=== PATIENT | male | born 1985 | race African-American/Black ===

== ENCOUNTER 2017-03-02 05:23 | Emergency (ER) | payer OTHER ==
[2017-03-02 05:33] VITALS: BP 139/86; BMI 24.3
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
[2017-03-02 07:02] LABS: BILIRUBIN,URINE NEGATIVE (NEGATIVE); BLOOD/HEMOGLOBIN,URINE NEGATIVE (NEGATIVE); GLUCOSE, URINE NEGATIVE (NEGATIVE); KETONES,URINE NEGATIVE (NEGATIVE); LEUKOCYTE ESTERASE ,URINE 2+ (NEGATIVE); NITRITES,URINE NEGATIVE (NEGATIVE); PROTEIN,URINE NEGATIVE (NEGATIVE); UROBILINOGEN,URINE NORMAL (NORMAL)
[2017-03-02 07:08] LABS: APPEARANCE,URINE SLIGHTLY HAZY (CLEAR); BACTERIA,URINE TRACE /HPF (NEGATIVE); COLOR,URINE YELLOW (YELLOW); RBC,URINE 0-1 /HPF (NEGATIVE); SQUAMOUS EPITHELIAL CELL,UR RARE /HPF (NEGATIVE)
[2017-03-02] MEDS ORDERED: ROCEPHIN VIAL 250 MG IM ONE (07:15)
[2017-03-02] MEDS ORDERED: ROCEPHIN VIAL 250 MG ONE (07:17)
[2017-03-02 08:36] LABS: CHLAMYDIA TRACH URINE NOT DETECTED (NOT DETECT)
== END 2017-03-02 07:38 | disposition home or self-care (01) ==
LOC: ER 05:23
DX: A64 Unspecified sexually transmitted disease (principal); N30.00 Acute cystitis without hematuria
CPT/HCPCS: 81001; 87086; 87491; 87591; 96372; 99282; 99283; J0696

== ENCOUNTER 2017-07-21 12:16 | Emergency (ER) | payer SELFPAY ==
[2017-07-21 12:22] VITALS: BP 127/79; BMI 23.1
[2017-07-21 12:47] LABS: BILIRUBIN,URINE NEGATIVE (NEGATIVE); BLOOD/HEMOGLOBIN,URINE NEGATIVE (NEGATIVE); GLUCOSE, URINE NEGATIVE (NEGATIVE); KETONES,URINE NEGATIVE (NEGATIVE); LEUKOCYTE ESTERASE ,URINE NEGATIVE (NEGATIVE); NITRITES,URINE NEGATIVE (NEGATIVE); PROTEIN,URINE NEGATIVE (NEGATIVE); UROBILINOGEN,URINE 1+ (NORMAL)
[2017-07-21 12:57] LABS: APPEARANCE,URINE CLEAR (CLEAR); BACTERIA,URINE NEGATIVE /HPF (NEGATIVE); COLOR,URINE YELLOW (YELLOW); RBC,URINE NONE SEEN /HPF (NEGATIVE); SQUAMOUS EPITHELIAL CELL,UR NEGATIVE /HPF (NEGATIVE)
--- NOTE | 2017-07-21 13:05 | DR.UPM ---
HPI - Time Seen Time seen: 12:40 - PCP Primary Care Physician: - Complaint Chief Complaint:: PT STATES " I HAVE A YEAST INFECTION I HAVE BEEN HAVING A CLEAR DISCHARGE AND MY GIRL CAME THIS MORNING AND SHE HAS A UTI. ". - Source History Provided: Patient - Mode of Arrival Mode of Arrival: Ambulatory - Timing Onset of Chief Complaint: 07/19/17 PMH - PMH Past Medical History: No Past Surgical History: No Surgical History: Abdominal Surgery - Family History History of Family Medical Conditions: Yes Family Medical History: Diabetes Mellitus - Social History Does patient currently use any type of tobacco product: Yes Have you used tobacco products in the last 12 months: Yes Type of Tobacco Use: Cigarettes How many years tobacco product used: 10 Does any household member use tobacco: No Alcohol Use: None Do you use any recreational Drugs:: No Lives With: Family Lives Where: Home - infectious screening In the last 2 months have you had wt loss of >10#?: NO Have you had fever, night sweats or hemotysis?: No Have you traveled outside the country in the last 6 months?: No Isolation: Standard PE - Vital Signs Vitals: Temperature 98.9 F Pulse Rate 79 Respiratory Rate 20 Blood Pressure 127/79 O2 Sat by Pulse Oximetry 99 - General Limitations: No Limitations General Appearance: Alert - Head Head Exam: Normal Inspection, Atraumatic - Eyes Eye exam: Normal Appearance, PERRL, EOMI - ENT ENT Exam: Normal Exam, Normal Oropharynx - Neck Neck Exam: Normal Inspection, Full ROM - Chest Chest Inspection: Normal Inspection - Respiratory Respiratory Exam: Normal Lung Sounds Bilat Respiratory Exam: Bilateral Clear to Auscultation - Cardiovascular Cardiovascular Exam: Regular Rate - Abdominal Exam Abdominal Exam: Normal Inspection, Normal Bowel Sounds Abdominal Tenderness: negative: RUQ, RLQ, LUQ, LLQ, Epigastrium, Suprapubic, Diffuse, Mild, Moderate, Severe, Other - Rectal Rectal Exam: Deferred - Genitourinary Exam: Male: Deferred Scrotal Exam: Normal: Bilateral - Extremities Extremities Exam: Normal Inspection, Full ROM - Back Back Exam: Normal Inspection, Full ROM - Neurologic Neurological Exam: Alert, Oriented X3, CN II-XII Intact - Psychiatric Psychiatric Exam: Normal Affect - Skin Skin Exam: Warm, Dry, Intact ROR - Labs Reviewed Laboratory Results Reviewed?: Yes (Labs for STD pending) Laboratory: Specimen Type Clean catch urine 07/21/17 12:34 Urine Color Yellow (YELLOW) 07/21/17 12:34 Urine Appearance Clear (CLEAR) 07/21/17 12:34 Urine pH 6.0 (5.0 - 8.0) 07/21/17 12:34 Ur Specific [place] 1.020 (1.000-1.030) 07/21/17 12:34 Urine Protein Negative (NEGATIVE) 07/21/17 12:34 Urine Glucose (UA) Negative (NEGATIVE) 07/21/17 12:34 Urine Ketones Negative (NEGATIVE) 07/21/17 12:34 Urine Occult Blood Negative (NEGATIVE) 07/21/17 12:34 Urine Nitrite Negative (NEGATIVE) 07/21/17 12:34 Urine Bilirubin Negative (NEGATIVE) 07/21/17 12:34 Urine Urobilinogen 1+ (NORMAL) 07/21/17 12:34 Ur Leukocyte Esterase Negative (NEGATIVE) 07/21/17 12:34 Urine RBC None seen /HPF (NEGATIVE) 07/21/17 12:34 Urine WBC None seen /HPF (NEGATIVE) 07/21/17 12:34 Ur Squamous Epith Cells Negative /HPF (NEGATIVE) 07/21/17 12:34 Urine Bacteria Negative /HPF (NEGATIVE) 07/21/17 12:34 Ur Culture Indicated? No/not indicated 07/21/17 12:34 - Diagnosis Discharge Problem: STD (male) - Discharge Plan Condition: Stable - Follow ups/Referrals Follow ups/Referrals: NFD,None [Primary Care Provider] - 3 days - Instructions
[2017-07-21] MEDS ORDERED: ROCEPHIN VIAL 500 MG IM ONE (14:23)
[2017-07-21] MEDS ORDERED: XYLOCAINE 1 % (PLAIN) ONE (14:24)
[2017-07-21] MEDS ORDERED: ROCEPHIN VIAL 500 MG ONE (14:24)
[2017-07-21 14:32] LABS: CHLAMYDIA TRACH URINE DETECTED (NOT DETECT)
== END 2017-07-21 14:44 | disposition home or self-care (01) ==
LOC: ER 12:26
DX: A64 Unspecified sexually transmitted disease (principal)
CPT/HCPCS: 81001; 87491; 87591; 96372; 99282; J0696; J2001